=== PATIENT | male | born 1940 | race Two or more races ===

== ENCOUNTER 2021-12-23 06:51 | Day surgery (SDC) | payer OTHER | END 2021-12-23 10:35 | disposition home or self-care (01) | LOC: AMB-ENDOS 06:51 | PROVIDERS: ATTEND Colon & Rectal Surgery | DX: C18.3 Malignant neoplasm of hepatic flexure (principal); Z20.822 Contact with and (suspected) exposure to COVID-19; K64.2 Third degree hemorrhoids; E10.9 Type 1 diabetes mellitus without complications; I10 Essential (primary) hypertension; K62.89 Other specified diseases of anus and rectum ==